=== PATIENT | male | born 1975 | race Caucasian/White ===

== ENCOUNTER 2021-07-02 20:07 | Emergency (ER) | payer OTHER ==
[~2021-07-02] VITALS: Ht 182.9 cm; Wt 122.5 kg
[2021-07-03] MEDS ORDERED: PERCOCET 5-3251 EACH PO (00:44)
== END 2021-07-03 06:34 | disposition home or self-care (01) ==
LOC: ED 20:07
DX: S42.291A Other displaced fracture of upper end of right humerus, initial encounter for closed fracture (principal); V28.4XXA Motorcycle driver injured in noncollision transport accident in traffic accident, initial encounter; Y93.I9 Activity, other involving external motion
CPT/HCPCS: 36415; 70450; 71260; 72125; 73030; 73080; 73560; 74177; 80053; 85025; 85610; 99284-25; A9270; J1170; J2405; J3010; Q9967